=== PATIENT | female | born 1980 | race Caucasian/White ===

== ENCOUNTER 2019-07-20 08:53 | Outpatient (CLI) | payer BC, SELFPAY ==
[2019-07-20 09:26] LABS: Hemoglobin A1C 7.4 % (<5.7)
[2019-07-20 10:53] LABS: Basophils Absolute Auto 0.03 K/mm3 (0.00-0.10); Basophils Percent Auto 0.4 % (0.0-1.0); Eosinophils Absolute Auto 0.32 K/mm3 (0.02-0.50); Eosinophils Percent Auto 3.8 % (1.0-6.0); Hematocrit 38.9 % (35.0-49.0); Hemoglobin 13.1 g/dL (12.0-15.0); Immature Granulocyte Absolute 0.04 K/mm3 (0.00-0.00); Immature Granulocyte Percent A 0.5 % (0.0-0.0); Lymphocytes Absolute Auto 1.69 K/mm3 (1.10-4.50); Lymphocytes Percent Auto 20.3 % (18.0-42.0); Mean Corpuscular HGB Conc 33.7 g/dL (32.0-36.0); Mean Corpuscular Hemoglobin 28.3 pg (27.0-31.0); Mean Platelet Volume 11.3 fl (9.2-11.8); Monocytes Absolute Auto 0.57 K/mm3 (0.10-0.90); Monocytes Percent Auto 6.8 % (2.0-11.0); Neutrophils Absolute Auto 5.7 K/mm3 (1.7-7.2); Neutrophils Percent Auto 68.2 % (50.0-70.0); Platelet Count Result 246 K/mm3 (150-420); Red Blood Count 4.63 M/mm3 (4.20-5.40); Red Cell Distribution Width 14.3 % (11.6-14.4); White Blood Count 8.3 K/mm3 (4.8-10.8)
[2019-07-20 11:29] LABS: Alanine Aminotransferase 42 U/L (14-59); Alkaline Phosphatase 112 U/L (46-116); Anion Gap 16.3 mmol/L (7-16); Aspartate Amino Transferase 30 U/L (15-37); Bilirubin,Total 0.3 mg/dL (0.00-1.00); Blood Urea Nitrogen 15 mg/dL (7-18); Carbon Dioxide 26 mmol/L (21-32); Chloride 99 mmol/L (98-108); Cholesterol 233 mg/dL (0-200); Estimated Glomerular Filt Rate > 60; Free T4 Free Thyroxine 1.07 ng/dL (0.76-1.46); Glucose 189 mg/dL (70-99); HDL Direct 35 mg/dL (40-60); LDL Cholesterol Calculated 125 mg/dL (<130); Osmolality Calculated 289 mOsm/kg (285-295); Potassium 4.3 mmol/L (3.5-5.1); Sodium 137 mmol/L (136-145); Thyroid Stimulating Hormone 0.55 uIU/mL (0.36-3.74); Total Protein 7.6 g/dL (6.4-8.2); Triglycerides 365 mg/dL (0-150); Vitamin B12 486 pg/mL (193-986)
[2019-07-22 18:31] LABS: Vitamin D 25 Hydroxy 23 ng/mL (30-100)
== END 2019-07-20 08:54 | disposition home or self-care (01) ==
PROVIDERS: PCP Nurse Practitioner Family; Visit Provider Nurse Practitioner Family
DX: R53.83 Other fatigue (principal); E11.9 Type 2 diabetes mellitus without complications; E55.9 Vitamin D deficiency, unspecified
CPT/HCPCS: 36415; 80053; 80061; 82306; 82607; 83036; 84439; 84443; 85025

== ENCOUNTER 2019-09-27 09:13 | Outpatient (CLI) | payer BC, SELFPAY ==
[2019-09-28 00:09] LABS: SARS-CoV-2 RNA PCR Negative
== END 2019-09-27 09:14 | disposition home or self-care (01) ==
PROVIDERS: PCP Nurse Practitioner Family; Visit Provider Nurse Practitioner Family
DX: R52 Pain, unspecified (principal)
CPT/HCPCS: 87635; C9803; U0003

== ENCOUNTER 2019-10-19 07:55 | Emergency (ER) | payer BC, SELFPAY ==
--- NOTE | ~2019-10-19 | CT_ITS ---
EXAMINATION: CT brain wo con DATE: 10/19/2019 08:59 INDICATION: Headache. Left-sided numbness. TECHNIQUE: Computed tomography (CT) of the head was performed without intravenous contrast. The mA wa s adjusted according to patient size. Iterative reconstruction technique was employed. Exam dose: 60 5.33 mGy-cm total exam DLP. COMPARISON: None FINDINGS: No intracranial mass lesion or hemorrhage or cerebrovascular accident is detected. There is no midline shift or mass effect. Normal ventricular size. No subdural or epidural hematoma. No fracture or bone destruction of the cranial vault. The mastoid air cells and included paranasal si nuses are normally developed and aerated. IMPRESSION: Negative Reviewed, dictated and finalized at [facility]. Reviewed, dictated and finalized at location A. IMPRESSION: Negative
--- NOTE | ~2019-10-19 | XR_ITS ---
EXAMINATION: XR chest 2V 10/19/2019 08:46 INDICATION: Right-sided chest pain PROCEDURE: 2 view chest COMPARISON: No prior studies for comparison. FINDINGS: The lungs are clear. The cardiomediastinal silhouette is within normal limits. There are no pleural effusions. There is no pneumothorax suspected. IMPRESSION: 1: NO ACUTE CARDIOPULMONARY DISEASE. Reviewed, dictated and finalized at location A.
[2019-10-19 08:00] VITALS: PULSE 80
[2019-10-19 08:02] VITALS: BP 142/86; PULSE 97; RESP 20; TEMP 36.9; O2SAT 96
--- NOTE | 2019-10-19 08:02 | ECG_ITS ---
Measurements Intervals [place] Rate: 88 P: 19 TX: 130 QRS: 63 QRSD: 85 T: 12 QT: 369 QTc: 447 Interpretive Statements SINUS RHYTHM CONSIDER INFERIOR INFARCT, AGE INDETERMINATE BASELINE ARTIFACT- II, III, AVR, AVF ABNORMAL ECG Electronically Signed On 10-19-2019 8:44:03 CDT by Leroy Bowers D.O.
--- NOTE | 2019-10-19 08:13 | ED.CHESTPAIN ---
HPI - Chest Pain General Chief Complaint: Chest Pain Stated Complaint: chest pain l sided numbness since sat Time Seen by Provider: 10/19/19 08:02 Source: patient Mode of arrival: ambulatory Limitations: no limitations History of Present Illness HPI narrative: 39-year-old woman with a history of type 2 diabetes comes to the emergency department today complaining of chest pain for the last 3 days. Patient states that the episodes last approximately 15 minutes and seemed to be improved with rest. She has had some episodes at rest. She associates the pain with nausea. She has also developed a severe headache , left neck pain, and left-sided numbness. she states that while she has recently been camping, she did not find any attached ticks. Patient states that she had a negative stress test 5 years ago after having had chest pains. MD complaint: chest pain Onset (ago): day(s) (3) Timing of current episode: episodic and daily Prior episodes: No Onset: during rest and during exertion Pain location: substernal Pain radiation: none Severity: moderate Quality: sharp Relieving factors: rest Exacerbating factors: palpation Context: recent illness ( recently treated with antibiotics for sinusitis) Associated symptoms: nausea Treatment prior to arrival: aspirin Risk Factors Coronary artery disease risk factors: diabetes and smoking history Related Data On Oral Contraceptives: No Allergies Allergy/AdvReac Type Severity Reaction Status Date / Time codeine Allergy Intermediate unkown Verified 09/28/19 15:07 iodine Allergy Intermediate unknown Verified 09/28/19 15:07 fish oil Allergy Unknown unknown Verified 09/28/19 15:07 seafood Allergy Intermediate unknown Uncoded 09/28/19 15:07 Review of Systems Constitutional: Constitutional: Denies chills, Denies fever(s) and Denies weakness Eyes: Eyes: Denies change in vision and Denies photophobia ENT: Denies dysphagia, Denies nasal congestion and Denies sore throat Cardiovascular: Cardiovascular: Reports chest pain, Denies rapid heart rate, Denies radiating jaw, neck or arm pain and Denies slow heart rate Respiratory: Respiratory: Denies cough, Denies dyspnea and Denies wheezing Gastrointestinal: Gastrointestinal: Reports abdominal pain (left side), Denies diarrhea, Reports nausea and Denies vomiting Genitourinary: Genitourinary: Denies hematuria, Denies nocturia and Denies dysuria Musculoskeletal: Musculoskeletal: Denies back pain, Denies arthralgias and Denies joint swelling Integumentary/Breasts: Skin/Breast: Denies pruritus, Denies erythema and Denies rash Neurologic: Denies vertigo, Denies dizziness and Denies syncope Psychiatric: Psychiatric: Denies anxiety and Denies depression Hematologic/Lymphatic: Hematologic/Lymphatic: Denies easy bleeding and Denies easy bruising Allergic/Immunologic: Allergic/Immunologic: Denies lip swelling, Denies throat swelling and Denies tongue swelling PMFSH Past Medical History Medical History Depression Diabetes mellitus Nicotine dependence Patient overweight Surgical History Surgical History H/O hernia repair History of appendectomy History of colonoscopy in 2010, HERNIA WAS FOUND DURING THIS EXAM History of partial hysterectomy Hx of cholecystectomy Social History Social History Smoking packs per day: 1 Smoking cigarettes per day: 20.0 Years smoked: 25 Smoking pack-years: 25.00 Smoking status: Former smoker Tobacco type: cigarettes Alcohol intake: never Substance use: never Gender identity (if verbalized by the patient): Female Spiritual care concerns: No Exam Const: General: alert Nutritional Appearance: obese Orientation/consciousness: patient oriented x3 Limitations: no limitations Other: Mild acute distress. HENMT: Head: normal t
[2019-10-19] MEDS: ASPIRIN 81 MG CHEWABLE TABLET 324 MG PO (08:20)
[2019-10-19 08:25] LABS: Basophils Absolute Auto 0.05 K/mm3 (0.00-0.10); Basophils Percent Auto 0.6 % (0.0-1.0); Eosinophils Absolute Auto 0.37 K/mm3 (0.02-0.50); Eosinophils Percent Auto 4.7 % (1.0-6.0); Hematocrit 42.5 % (35.0-49.0); Hemoglobin 13.5 g/dL (12.0-15.0); Immature Granulocyte Absolute 0.04 K/mm3 (0.00-0.00); Immature Granulocyte Percent A 0.5 % (0.0-0.0); Lymphocytes Absolute Auto 1.67 K/mm3 (1.10-4.50); Lymphocytes Percent Auto 21.4 % (18.0-42.0); Mean Corpuscular HGB Conc 31.8 g/dL (32.0-36.0); Mean Platelet Volume 10.8 fl (9.2-11.8); Monocytes Percent Auto 6.4 % (2.0-11.0); Neutrophils Absolute Auto 5.2 K/mm3 (1.7-7.2); Neutrophils Percent Auto 66.4 % (50.0-70.0); Platelet Count Result 237 K/mm3 (150-420); White Blood Count 7.8 K/mm3 (4.8-10.8)
[2019-10-19] MEDS: ONDANSETRON INJ 4 MG/2 ML VIAL IV PUSH (08:25)
[2019-10-19 08:33] VITALS: BP 117/80; PULSE 78; RESP 20; O2SAT 99
[2019-10-19 08:36] LABS: Add Urine Microscopic? YES; Appearance Urine Clear (Clear); Bilirubin Urine Negative (Negative); Blood Urine Negative (Negative); Color Urine Yellow (Yellow); Glucose Urine UA 3+ (Negative); Ketones Urine Negative (Negative); Leukocyte Esterase Ur Negative LEU/UL (Negative); Nitrate Urine Negative (Negative); Protein Urine Negative (Negative); Specific Grav Ur 1.015 (1.010-1.020); Urobilinogen Urine 0.2 mg/dL (0.2-1.0)
[2019-10-19 08:42] LABS: Alanine Aminotransferase 45 U/L (14-59); Albumin Level 3.9 g/dL (3.4-5.0); Alkaline Phosphatase 119 U/L (46-116); Anion Gap 10 mmol/L (8-16); Aspartate Amino Transferase 23 U/L (15-37); Bilirubin,Total 0.3 mg/dL (0.00-1.00); Blood Urea Nitrogen 8 mg/dL (7-18); Calcium 9.3 mg/dL (8.5-10.1); Carbon Dioxide 27 mmol/L (21-32); Chloride 101 mmol/L (98-108); Estimated CRCL calculation 70 ml/min; Estimated Glomerular Filt Rate > 60; Glucose 163 mg/dL (70-99); Lipase 224 U/L (73-393); Osmolality Calculated 288 mOsm/kg (285-295); Sodium 138 mmol/L (136-145); Total Protein 8.5 g/dL (6.4-8.2)
[2019-10-19 08:43] LABS: D Dimer 0.46 mg/L (0.19-0.50); Partial Thromboplastin Time 25.8 SEC (22.3-31.6); Prothrombin Time 10.1 Seconds (9.64-11.0)
[2019-10-19 08:44] LABS: Troponin I < 0.02 ng/mL (0.00-0.056)
[2019-10-19 08:44] LABS: RBC Urine 0-2 /hpf (0-2); WBC Urine 0-3 /hpf (0-3)
[2019-10-19 08:45] LABS: Bacteria Urine Trace /hpf; Squamous Epithelial Cell Urine Few /hpf (Few)
[2019-10-19 09:26] VITALS: BP 131/73; PULSE 79; RESP 18; TEMP 36.6; O2SAT 98
[2019-10-20 12:51] LABS: Hemoglobin A1C 6.5 % (<5.7)
[2019-10-23 11:36] LABS: Vitamin D 25 Hydroxy 45 ng/mL (30-100)
== END 2019-10-19 09:41 | disposition home or self-care (01) ==
PROVIDERS: Emergency Provider Emergency Medicine; PCP Nurse Practitioner Family
DX: R07.89 Other chest pain (principal); M54.2 Cervicalgia; E11.9 Type 2 diabetes mellitus without complications; R51 Headache; F32.9 Major depressive disorder, single episode, unspecified; F17.210 Nicotine dependence, cigarettes, uncomplicated; E55.9 Vitamin D deficiency, unspecified
CPT/HCPCS: 36415; 70450; 71046; 80053; 81001; 82306; 83036; 83690; 84484; 85025; 85380; 85610; 85730; 93005; 96374; 99284; A9270; J2405

== ENCOUNTER 2019-10-20 11:57 | Outpatient (CLI) | payer BC, SELFPAY ==
--- NOTE | ~2019-10-20 | XR_ITS ---
XR shoulder LT min 2V DATE: 10/20/2019 12:33 INDICATION: Neck pain radiating down the left shoulder for 4 days TECHNIQUE: 4 views of left shoulder COMPARISON: None FINDINGS: No fracture, dislocation, periosteal reaction or bone destruction or abnormal soft tissue c alcification of the left shoulder. Normal alignment at the acromioclavicular and glenohumeral joints. IMPRESSION: Negative Reviewed, dictated and finalized at location A. IMPRESSION: Negative
--- NOTE | ~2019-10-20 | XR_ITS ---
XR_CERV2-3V_CR DATE: 10/20/2019 12:33 INDICATION: Neck pain radiating down left shoulder for 4 days TECHNIQUE: AP, lateral, open-mouth views COMPARISON: 12/19/2015 cervical spine FINDINGS: There is straightening and mild reversal of cervical curvature. C1 and C2 are normally aligned and the odontoid process is intact. No fracture or dislocation or lock ed facet or prevertebral soft tissue swelling. There is moderate loss of interspace height and mild to moderate posterior spurring at C5-6 consisten t with moderate degenerative disc disease. There is uncovertebral joint spurring at C5-6 as well. The remaining cervical interspaces are well preserved. IMPRESSION: Straightening/mild reversal Moderately prominent degenerative disc disease and uncovertebral joint spurring at C5-6 Reviewed, dictated and finalized at [facility]. Reviewed, dictated and finalized at location A.
== END 2019-10-20 11:58 | disposition home or self-care (01) ==
LOC: CHSIMG 12:00
PROVIDERS: PCP Nurse Practitioner Family; Visit Provider Nurse Practitioner Family
DX: M54.2 Cervicalgia (principal)
CPT/HCPCS: 72040; 73030

== ENCOUNTER 2019-10-26 15:50 | Outpatient (RCR) | payer BC, SELFPAY ==
--- NOTE | 2019-10-26 16:50 | PTOPEVAL ---
Thank you for referring Marisol Lane to [facility].? The patient is scheduled to be seen for therapy? ____x/week for ___ weeks. Please review, sign, date and return this plan of care CRISTIANA. I agree with and certify that the following plan of care is medically necessary. Referring Physician Date Admitting Provider: Attending Provider: Chrissie Berry NP Referring Provider: *PT Outpatient Evaluation Start: 10/26/19 15:57 Freq: Status: Active Protocol: Document 10/26/19 15:57 [facility] (Rec: 10/26/19 16:42 [facility] [id number]) Therapy Assessment Status Assessment Status Assessment Status Evaluation Outpatient Past Medical History Gastrointestinal History Hx Appendectomy Yes Hx Cholecystectomy Yes Hx Hernia Yes Endocrine History Hx Diabetes Yes Reproductive History Hx Hysterectomy Yes Psychosocial History Hx Depression Yes Evaluation Information Problem Diagnosis cervical osteophyte Onset 10/21/19 Subjective Information patient reports she initially Query Text:As Reported By Patient/ thought she was having a heart Family attack due to tingling in the L side. she reports she then had numbness in the jaw and chest pain. she has been cleared from the heart like symptoms, but that she has bone spurs in the c5-6 area. she reports she still currently has numbness on the L side from the base of her neck to the L toe. she reports L side jaw numbness at times. she reports laying down reproduces minimal symptoms, but increased activities of the UE's increased numbness symptoms. Prior Level of Function Comments Additional Prior Level of Function patient reports she has been Comments having these symptoms for about 2 weeks. she reports no injury. 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 she reports she is working from home currently. she reports she has been getting regular massges for years, then stopped, then began having pain about 3 days aft
--- NOTE | 2019-11-03 16:14 | PCPTNOTE ---
patient cancelled appt today due to not feeling well. DONALDO
--- NOTE | 2020-01-18 13:20 | PCPTNOTE ---
01/18/20 - patient has not been to therapy in over a month. as of this date, she has been DC'd from skilled PT services, and all progress towards goals will be taken from her most recent evaluation/note.
== END 2019-12-09 14:31 | disposition home or self-care (01) ==
LOC: CHSPT 15:50
PROVIDERS: PCP Nurse Practitioner Family; Visit Provider Nurse Practitioner Family
DX: M25.78 Osteophyte, vertebrae (principal)
CPT/HCPCS: 97014; 97110; 97140; 97162; G0283

== ENCOUNTER 2019-11-06 07:40 | Outpatient (CLI) | payer BC, SELFPAY ==
--- NOTE | ~2019-11-06 | MR_ITS ---
EXAMINATION: MR cervical spine wo con EXAM DATE: 11/06/2019 08:49 INDICATION: Neck pain going down left side with numbness, tingling, symptoms 3 months. TECHNIQUE: Multi-sequential, multiplanar MR images of the cervical spine were obtained without contra st. Axial T2, axial T2 MERGE sequence. Sagittal T1, T2, T2 fat saturation images also obtained. Th ere is no prior study for comparison. FINDINGS: There is mild disc disease at C5-6 and 6-7. The vertebral bodies are aligned in the AP dim ension. The spinal cord signal intensity and intrinsic morphology is normal. Cervicomedullary junctio n is normal in appearance. There are no suspicious marrow signal abnormalities. Paraspinal soft tissu e is unremarkable. Level by level evaluation: C2-C3: Disc does not extend beyond the endplate margin. Uncovertebral joint arthropathy: None. Facet joint arthropathy: Mild bilateral. Neural foraminal stenosis: No stenosis. Central canal stenosis: No stenosis. C3-C4: Disc does not extend beyond the endplate margin. Uncovertebral joint arthropathy: None. Facet joint arthropathy: Mild bilateral. Neural foraminal stenosis: No stenosis. Central canal stenosis: No stenosis. C4-C5: Disc does not extend beyond the endplate margin. Uncovertebral joint arthropathy: Mild bilateral. Facet joint arthropathy: Mild bilateral. Neural foraminal stenosis: No stenosis. Central canal stenosis: No stenosis. C5-C6: There is a mild diffuse disc bulge, causing mild flattening of cord but no signal abnormality, no edema. Uncovertebral joint arthropathy: Mild to moderate bilateral. Facet joint arthropathy: Mild. Neural foraminal stenosis: Mild to moderate right, mild left. Central canal stenosis: Mild. C6-C7: There is a minimal diffuse disc bulge. Uncovertebral joint arthropathy: Mild to moderate bilateral. Facet joint arthropathy: Mild bilateral. Neural foraminal stenosis: Mild bilateral. Central canal stenosis: No stenosis. C7-T1: Disc does not extend beyond the endplate margin. Uncovertebral joint arthropathy: None. Facet joint arthropathy: Mild left. Neural foraminal stenosis: No stenosis. Central canal stenosis: No stenosis. IMPRESSION: 1. Mild to moderate cervical spondylosis. Reviewed, dictated and finalized at location A.
== END 2019-11-06 07:41 | disposition home or self-care (01) ==
LOC: CHSIMG 07:41
PROVIDERS: PCP Nurse Practitioner Family
DX: M54.12 Radiculopathy, cervical region (principal)
CPT/HCPCS: 72141

== ENCOUNTER 2019-11-24 11:08 | Outpatient (CLI) | payer BC, SELFPAY ==
[2019-11-25 13:52] LABS: SARS-CoV-2 RNA PCR Negative
== END 2019-11-24 11:09 | disposition home or self-care (01) ==
PROVIDERS: PCP Family Medicine; Visit Provider Family Medicine
DX: Z20.828 Contact with and (suspected) exposure to other viral communicable diseases (principal)
CPT/HCPCS: 87635; C9803; U0003

== ENCOUNTER 2019-12-28 16:04 | Outpatient (CLI) | payer BC, SELFPAY ==
[2019-12-29 14:04] LABS: SARS-CoV-2 RNA PCR Negative
== END 2019-12-28 16:05 | disposition home or self-care (01) ==
LOC: CHSLAB 16:07
PROVIDERS: PCP Nurse Practitioner Family; Visit Provider Nurse Practitioner Family
DX: Z20.828 Contact with and (suspected) exposure to other viral communicable diseases (principal)
CPT/HCPCS: 87635; C9803; U0003

== ENCOUNTER 2020-01-11 12:57 | Outpatient (CLI) | payer BC, SELFPAY ==
[2020-01-11 14:38] LABS: SARS-CoV-2 Ag Negative (Negative)
== END 2020-01-11 12:58 | disposition home or self-care (01) ==
LOC: CHSLAB 13:00
PROVIDERS: PCP Nurse Practitioner Family; Visit Provider Nurse Practitioner Family
DX: Z20.828 Contact with and (suspected) exposure to other viral communicable diseases (principal)
CPT/HCPCS: 87426

== ENCOUNTER 2020-02-24 09:52 | Outpatient (CLI) | payer BC, SELFPAY ==
[2020-02-24 10:25] LABS: Hemoglobin A1C 7.6 % (<5.7)
[2020-02-24 12:13] LABS: Alanine Aminotransferase 34 U/L (14-59); Albumin Level 4.3 g/dL (3.4-5.0); Alkaline Phosphatase 153 U/L (46-116); Anion Gap 13 mmol/L (8-16); Aspartate Amino Transferase 26 U/L (15-37); Bilirubin,Total 0.4 mg/dL (0.00-1.00); Blood Urea Nitrogen 9 mg/dL (7-18); Calcium 9.4 mg/dL (8.5-10.1); Carbon Dioxide 25 mmol/L (21-32); Chloride 96 mmol/L (98-108); Estimated Glomerular Filt Rate > 60; Glucose 155 mg/dL (70-99); Osmolality Calculated 279 mOsm/kg (285-295); Potassium 4.2 mmol/L (3.5-5.1); Sodium 134 mmol/L (136-145); Total Protein 8.6 g/dL (6.4-8.2)
[2020-03-02 02:45] LABS: Vitamin D 25 Hydroxy 34 ng/mL (30-100)
== END 2020-02-24 09:53 | disposition home or self-care (01) ==
LOC: CHSLAB 09:54
PROVIDERS: PCP Nurse Practitioner Family; Visit Provider Nurse Practitioner Family
DX: E11.9 Type 2 diabetes mellitus without complications (principal); E55.9 Vitamin D deficiency, unspecified
CPT/HCPCS: 36415; 80053; 82306; 83036

== ENCOUNTER 2020-03-31 11:22 | Outpatient (CLI) | payer BC, SELFPAY ==
[2020-03-31 11:41] LABS: Hemoglobin A1C 6.7 % (<5.7)
== END 2020-03-31 11:23 | disposition home or self-care (01) ==
LOC: CHSLAB 11:22
PROVIDERS: PCP Nurse Practitioner Family; Visit Provider Nurse Practitioner Family
DX: E11.9 Type 2 diabetes mellitus without complications (principal)
CPT/HCPCS: 36415; 83036

== ENCOUNTER 2020-09-05 13:45 | Outpatient (CLI) | payer BC, SELFPAY ==
--- NOTE | ~2020-09-05 | US_ITS ---
US thyroid INDICATION: Thyroid goiter TECHNIQUE: Real-time sonographic images of the thyroid gland were obtained. COMPARISON: No prior studies for comparison. FINDINGS: The right thyroid lobe measures 5.2 x 1.5 x 1.5 cm. The left thyroid lobe measures 4.1 x 1 .6 x 0.9 cm. There is normal echotexture and echogenicity throughout the thyroid gland. There are sma ll hypoechoic masses of the right lobe, largest measuring 6 x 5 x 3 mm with having a spongiform appea geoffrey, hypoechoic, wider than tall, no microcalcifications and smooth margins, TR 2, not suspicious. Normal vascular flow is present. IMPRESSION: 1. Small right thyroid nodules, likely benign. Reviewed, dictated and finalized at location A.
== END 2020-09-05 13:46 | disposition home or self-care (01) ==
LOC: CHSIMG 13:47
PROVIDERS: PCP Nurse Practitioner Family; Visit Provider Internal Medicine Endocrinology, Diabetes & Metabolism
DX: E04.9 Nontoxic goiter, unspecified (principal)
CPT/HCPCS: 76536

== ENCOUNTER 2020-09-06 07:21 | Outpatient (CLI) | payer BC, SELFPAY ==
[2020-09-06 07:55] LABS: Creatinine Urine 48.01 mg/dL (40-278); Hemoglobin A1C 7.6 % (<5.7); Microalbumin Urine Random < 13.0 mg/L
[2020-09-06 09:31] LABS: Alanine Aminotransferase 30 U/L (14-59); Albumin Level 3.9 g/dL (3.4-5.0); Alkaline Phosphatase 131 U/L (46-116); Anion Gap 14 mmol/L (8-16); Aspartate Amino Transferase 19 U/L (15-37); Bilirubin,Total 0.5 mg/dL (0.00-1.00); Blood Urea Nitrogen 10 mg/dL (7-18); Calcium 8.9 mg/dL (8.5-10.1); Carbon Dioxide 26 mmol/L (21-32); Chloride 99 mmol/L (98-108); Estimated Glomerular Filt Rate > 60; Free T3 2.46 pg/mL (2.18-3.98); Free T4 Free Thyroxine 0.91 ng/dL (0.76-1.46); Glucose 145 mg/dL (70-99); Osmolality Calculated 290 mOsm/kg (285-295); Potassium 4.3 mmol/L (3.5-5.1); Sodium 139 mmol/L (136-145); Thyroid Stimulating Hormone 0.71 uIU/mL (0.36-3.74); Total Protein 7.5 g/dL (6.4-8.2); Vitamin B12 1730 pg/mL (193-986)
[2020-09-06 09:35] LABS: Folic Acid > 20.0 ng/mL (8.6->20)
[2020-09-09 05:12] LABS: DHEA-Sulfate 219 mcg/dL (19-231); Thyroid Peroxidase Antibodies <1 IU/mL (<9)
[2020-09-09 05:36] LABS: FSH 6.5 mIU/mL (***); LH 3.4 mIU/mL (***); Progesterone 0.5 ng/mL (***)
[2020-09-12 22:16] LABS: Estradiol, Ultrasensitive 21 pg/mL
[2020-09-13 14:39] LABS: Testosterone Free 2.3 pg/mL (0.1-6.4); Testosterone Total 14 ng/dL (2-45)
== END 2020-09-06 07:22 | disposition home or self-care (01) ==
LOC: CHSLAB 07:23
PROVIDERS: PCP Nurse Practitioner Family; Visit Provider Internal Medicine Endocrinology, Diabetes & Metabolism
DX: E11.65 Type 2 diabetes mellitus with hyperglycemia (principal); N95.9 Unspecified menopausal and perimenopausal disorder; R53.83 Other fatigue
CPT/HCPCS: 36415; 80053; 82043; 82607; 82627; 82670; 82746; 83001; 83002; 83036; 84144; 84402; 84403; 84439; 84443; 84481; 86376

== ENCOUNTER 2021-02-27 07:02 | Outpatient (CLI) | payer BC, SELFPAY ==
[2021-02-27 07:33] LABS: Creatinine Urine 71.83 mg/dL (40-278); Microalbumin Urine Random < 13.0 mg/L
[2021-02-27 07:48] LABS: Hemoglobin A1C 6.7 % (<5.7)
[2021-02-27 09:33] LABS: Alanine Aminotransferase 22 U/L (14-59); Alkaline Phosphatase 123 U/L (46-116); Anion Gap 12 mmol/L (8-16); Aspartate Amino Transferase 12 U/L (15-37); Bilirubin,Total 0.3 mg/dL (0.00-1.00); Blood Urea Nitrogen 16 mg/dL (7-18); Calcium 9.2 mg/dL (8.5-10.1); Carbon Dioxide 28 mmol/L (21-32); Chloride 98 mmol/L (98-108); Cholesterol 316 mg/dL (0-200); Estimated Glomerular Filt Rate > 60; Folic Acid 12.8 ng/mL (8.6->20); Free T3 2.45 pg/mL (2.18-3.98); Free T4 Free Thyroxine 0.91 ng/dL (0.76-1.46); Glucose 138 mg/dL (70-99); HDL Direct 35 mg/dL (40-60); Osmolality Calculated 289 mOsm/kg (285-295); Potassium 4.2 mmol/L (3.5-5.1); Sodium 138 mmol/L (136-145); Thyroid Stimulating Hormone 0.66 uIU/mL (0.36-3.74); Total Protein 8.1 g/dL (6.4-8.2)
[2021-02-27 09:41] LABS: LDL Cholesterol Calculated 163 mg/dL (<130); Triglycerides 589 mg/dL (0-150); Vitamin B12 > 2000 pg/mL (193-986)
[2021-02-27 09:43] LABS: LDL Cholesterol Direct 174 mg/dL (0-130)
[2021-03-02 05:17] LABS: Thyroid Peroxidase Antibodies <1 IU/mL (<9)
== END 2021-02-27 07:03 | disposition home or self-care (01) ==
LOC: CHSLAB 07:05
PROVIDERS: PCP Nurse Practitioner Family; Visit Provider Internal Medicine Endocrinology, Diabetes & Metabolism
DX: E11.9 Type 2 diabetes mellitus without complications (principal); E06.3 Autoimmune thyroiditis; Z13.220 Encounter for screening for lipoid disorders
CPT/HCPCS: 36415; 80053; 80061; 82043; 82607; 82746; 83036; 83721; 84439; 84443; 84481; 86376

== ENCOUNTER 2021-03-06 09:44 | Outpatient (CLI) | payer BC, SELFPAY ==
--- NOTE | ~2021-03-06 | XR_ITS ---
XR hand LT 2V DATE: 03/06/2021 09:56 INDICATION: Fourth and fifth distal metacarpal lump/swelling, tingling. No injury. TECHNIQUE: AP and lateral views COMPARISON: None FINDINGS: No fracture, dislocation, periosteal reaction or bone destruction, joint space narrowing, e rosive change or chondrocalcinosis. IMPRESSION: Negative Reviewed, dictated and finalized at location A. F DEVELOPMENT EDUCATOR IMPRESSION: Negative
== END 2021-03-06 09:45 | disposition home or self-care (01) ==
LOC: CHSIMG 09:46
PROVIDERS: PCP Nurse Practitioner Family; Visit Provider Nurse Practitioner Family
DX: R22.32 Localized swelling, mass and lump, left upper limb (principal)
CPT/HCPCS: 73120

== ENCOUNTER 2021-03-20 10:15 | Outpatient (CLI) | payer BC, SELFPAY ==
--- NOTE | ~2021-03-20 | US_ITS ---
EXAMINATION: US soft tissue UE LT DATE: 03/20/2021 10:30 INDICATION: Left hand ganglion cyst TECHNIQUE: Multiple grayscale and Doppler ultrasound images of the region of the palpable abnormality at the palmar aspect of the left hand to the base of the fifth digit were obtained. COMPARISON: Left hand radiographs dated 03/06/2021 FINDINGS/IMPRESSION: 3 x 1 x 3 mm anechoic likely ganglion cyst along the superficial margin of the flexor tendon overlyin g the palmar aspect of the fifth metacarpophalangeal joint. No other abnormal masses or fluid collect ions identified. Reviewed, dictated and finalized at location A. OPSYCHOLOGIST
== END 2021-03-20 10:16 | disposition home or self-care (01) ==
LOC: CHSIMG 10:16
PROVIDERS: PCP Nurse Practitioner Family; Visit Provider Nurse Practitioner Family
DX: M67.442 Ganglion, left hand (principal)
CPT/HCPCS: 76882

== ENCOUNTER 2021-08-21 10:38 | Outpatient (CLI) | payer BC, SELFPAY ==
[2021-08-21 11:35] LABS: Hemoglobin A1C 7.1 % (<5.7)
[2021-08-21 11:37] LABS: MALB Creatinine Ratio 35.6 mg/g (0-30); Microalbumin Urine Random < 13.0 mg/L
[2021-08-21 11:47] LABS: Alanine Aminotransferase 30 U/L (14-59); Alkaline Phosphatase 91 U/L (46-116); Anion Gap 10 mmol/L (8-16); Aspartate Amino Transferase 14 U/L (15-37); Bilirubin,Total 0.4 mg/dL (0.00-1.00); Blood Urea Nitrogen 10 mg/dL (7-18); Calcium 9.2 mg/dL (8.5-10.1); Carbon Dioxide 26 mmol/L (21-32); Chloride 100 mmol/L (98-108); Cholesterol 121 mg/dL (0-200); Estimated Glomerular Filt Rate > 60; Free T3 1.85 pg/mL (2.18-3.98); Free T4 Free Thyroxine 0.96 ng/dL (0.76-1.46); Glucose 118 mg/dL (70-99); HDL Direct 35 mg/dL (40-60); LDL Cholesterol Calculated 41 mg/dL (<130); Osmolality Calculated 282 mOsm/kg (285-295); Potassium 3.6 mmol/L (3.5-5.1); Sodium 136 mmol/L (136-145); Thyroid Stimulating Hormone 0.47 uIU/mL (0.36-3.74); Total Protein 7.7 g/dL (6.4-8.2); Triglycerides 226 mg/dL (0-150)
== END 2021-08-21 10:39 | disposition home or self-care (01) ==
LOC: CHSLAB 10:43
PROVIDERS: PCP Internal Medicine Endocrinology, Diabetes & Metabolism; Visit Provider Internal Medicine Endocrinology, Diabetes & Metabolism
DX: E03.9 Hypothyroidism, unspecified (principal); E78.2 Mixed hyperlipidemia; E11.9 Type 2 diabetes mellitus without complications
CPT/HCPCS: 36415; 80053; 80061; 82043; 83036; 84439; 84443; 84481

== ENCOUNTER 2021-11-01 09:39 | Emergency (ER) | payer BC, SELFPAY ==
[2021-11-01 09:43] VITALS: BP 114/70; PULSE 88; RESP 16; TEMP 36.3; O2SAT 100
--- NOTE | 2021-11-01 09:44 | ED.FEMALEGU ---
HPI - Female Genitourinary General Stated complaint: Poss UTI Time Seen by Provider: 11/01/21 09:44 Source: patient and RN notes reviewed History of Present Illness HPI Narrative: Patient is a 41-year-old female who presents the urgent care with complaints of urinary frequency and intermittent nausea. Patient denies of any fever, abdominal pain or vomiting. States that she is diabetic and on a medication that increases her urine output however this seems to be worse since Friday. Patient states she has a history of urinary tract infections but has not had one in some time. Denies of any hematuria. States that she has had some mild low back pain. Patient is not done anything [id number] for her symptoms. Patient also has not checked her blood sugar in some time and has not been wearing her monitor. No other acute complaints. No acute distress noted. Patient aware of the plan of care. Some parts of this dictation were generated by voice recognition software and may contain typographical and/or grammatical inaccuracies. Related Data Home Medications Medication Instructions Recorded Confirmed dapagliflozin 10 mg tablet 10 mg PO QAM 03/06/21 metformin 500 mg tablet,extended 500 mg PO BID 03/06/21 03/06/21 release 24 hr rosuvastatin 40 mg tablet 40 mg PO DAILY 04/24/21 semaglutide 0.25 mg or 0.5 mg (2 0.5 mg subcut WEEKLY 04/24/21 mg/1.5 mL) subcutaneous pen injector Allergies Allergy/AdvReac Type Severity Reaction Status Date / Time codeine Allergy Intermediate unkown Verified 04/24/21 12:48 iodine Allergy Intermediate unknown Verified 04/24/21 12:48 fish oil Allergy Unknown unknown Verified 04/24/21 12:48 seafood Allergy Intermediate unknown Uncoded 04/24/21 12:48 Review of Systems Review of Systems: CONSTITUTIONAL: Denies fever, chills, or sweats. EYES: Denies visual changes, redness, or discharge. ENT: Denies rhinorrhea, congestion, sore throat, or otalgia. CARDIOVASCULAR: Denies chest pain, palpitations, or edema. RESPIRATORY: Denies cough or dyspnea. GASTROINTESTINAL: Reports of nausea GENITOURINARY: Reports of urinary frequency and mild dysuria SKIN: Denies rash or itching. MUSCULOSKELETAL: Reports of low back pain NEUROLOGIC: Denies headache, numbness, or weakness. All other systems reviewed are negative, except as documented in HPI. PMFSH Past Medical History Medical History Acute bronchitis Acute bronchitis Depression Diabetes mellitus Exposure to COVID-19 virus Nicotine dependence Quit for awhile, started smoking again 10/2019 Patient overweight Surgical History Surgical History H/O hernia repair History of appendectomy History of colonoscopy in 2010, HERNIA WAS FOUND DURING THIS EXAM History of partial hysterectomy Hx of cholecystectomy Family History Family History Mother Hypertension Grandparent Hypertension Other Diabetes mellitus Social History Social History Smoking packs per day: 1 Smoking cigarettes per day: 20.0 Years smoked: 25 Smoking pack-years: 25.00 Smoking status: Current every day smoker Tobacco type: cigarettes Alcohol intake: never Substance use: never Gender identity (if verbalized by the patient): Female Spiritual care concerns: No Comments At the time of my signature, I reviewed and agree with the nursing past medical, surgical, social, and family history. There is no relevant family history pertinent to the patient complaint. Exam Narrative: GENERAL: This is a well-nourished, well-developed patient, in no apparent distress. HEAD: normocephalic, atraumatic. EYES: PERRL. Sclera clear/white. Vision is grossly intact. EARS: External ears normal NOSE: External nose normal with no obvious nasal discharge
== END 2021-11-01 10:05 | disposition home or self-care (01) ==
PROVIDERS: Emergency Provider Nurse Practitioner Family
DX: R35.0 Frequency of micturition (principal); E11.9 Type 2 diabetes mellitus without complications; F17.210 Nicotine dependence, cigarettes, uncomplicated; Z87.440 Personal history of urinary (tract) infections
CPT/HCPCS: 81003; 87086; 87088; 99213; G0463

== ENCOUNTER 2021-11-23 06:53 | Outpatient (CLI) | payer BC, SELFPAY ==
[2021-11-23 07:36] LABS: Hemoglobin A1C 6.6 % (<5.7)
[2021-11-23 08:32] LABS: Alanine Aminotransferase 37 U/L (14-59); Albumin Level 4.3 g/dL (3.4-5.0); Alkaline Phosphatase 77 U/L (46-116); Anion Gap 8 mmol/L (8-16); Aspartate Amino Transferase 20 U/L (15-37); Bilirubin,Total 0.4 mg/dL (0.00-1.00); Blood Urea Nitrogen 13 mg/dL (7-18); Calcium 8.7 mg/dL (8.5-10.1); Carbon Dioxide 28 mmol/L (21-32); Chloride 102 mmol/L (98-108); Cholesterol 92 mg/dL (0-200); Estimated Glomerular Filt Rate > 60; Free T3 2.15 pg/mL (2.18-3.98); Free T4 Free Thyroxine 1.09 ng/dL (0.76-1.46); Glucose 114 mg/dL (70-99); HDL Direct 33 mg/dL (40-60); LDL Cholesterol Calculated 34 mg/dL (<130); Osmolality Calculated 287 mOsm/kg (285-295); Sodium 138 mmol/L (136-145); Thyroid Stimulating Hormone 0.64 uIU/mL (0.36-3.74); Total Protein 7.5 g/dL (6.4-8.2); Triglycerides 124 mg/dL (0-150)
== END 2021-11-23 06:54 | disposition home or self-care (01) ==
LOC: CHSLAB 06:55
PROVIDERS: PCP Nurse Practitioner Family; Visit Provider Internal Medicine Endocrinology, Diabetes & Metabolism
DX: E03.9 Hypothyroidism, unspecified (principal); E11.9 Type 2 diabetes mellitus without complications; E78.2 Mixed hyperlipidemia
CPT/HCPCS: 36415; 80053; 80061; 82043; 83036; 84439; 84443; 84481

== ENCOUNTER 2022-05-20 07:00 | Outpatient (CLI) | payer BC, SELFPAY ==
[2022-05-20 07:58] LABS: MALB Creatinine Ratio 14.2 mg/g (0-30); Microalbumin Urine Random 16.5 mg/L
[2022-05-20 07:59] LABS: Hemoglobin A1C 6.2 % (<5.7)
[2022-05-20 08:14] LABS: Alanine Aminotransferase 106 U/L (14-59); Albumin Level 4.3 g/dL (3.4-5.0); Alkaline Phosphatase 82 U/L (46-116); Anion Gap 9 mmol/L (8-16); Aspartate Amino Transferase 64 U/L (15-37); Bilirubin,Total 0.5 mg/dL (0.00-1.00); Blood Urea Nitrogen 11 mg/dL (7-18); Carbon Dioxide 30 mmol/L (21-32); Chloride 102 mmol/L (98-108); Cholesterol 95 mg/dL (0-200); Estimated Glomerular Filt Rate > 60; Free T3 2.28 pg/mL (2.18-3.98); Glucose 123 mg/dL (70-99); HDL Direct 39 mg/dL (40-60); LDL Cholesterol Calculated 37 mg/dL (<130); Osmolality Calculated 292 mOsm/kg (285-295); Potassium 4.1 mmol/L (3.5-5.1); Sodium 141 mmol/L (136-145); Thyroid Stimulating Hormone 0.55 uIU/mL (0.36-3.74); Total Protein 7.5 g/dL (6.4-8.2); Triglycerides 93 mg/dL (0-150)
== END 2022-05-20 07:01 | disposition home or self-care (01) ==
PROVIDERS: PCP Nurse Practitioner Family; Visit Provider Internal Medicine Endocrinology, Diabetes & Metabolism
DX: E11.9 Type 2 diabetes mellitus without complications (principal); E03.9 Hypothyroidism, unspecified; E78.2 Mixed hyperlipidemia
CPT/HCPCS: 36415; 80053; 80061; 82043; 83036; 84439; 84443; 84481

== ENCOUNTER 2022-07-19 07:02 | Outpatient (CLI) | payer BC, SELFPAY ==
[2022-07-19 08:57] LABS: Alanine Aminotransferase 78 U/L (14-59); Albumin Level 4.1 g/dL (3.4-5.0); Alkaline Phosphatase 77 U/L (46-116); Aspartate Amino Transferase 31 U/L (15-37); Bilirubin Direct 0.1 mg/dL (0-0.2); Bilirubin,Total 0.3 mg/dL (0.00-1.00); Ferritin 90 ng/mL (8-252); GGT 40 U/L (5-55); Iron 51 ug/dL (50-170); Percent Iron Saturation 14 % (12-57); Total Protein 7.2 g/dL (6.4-8.2)
[2022-07-24 12:15] LABS: Hepatitis A Antibody IgM Nonreactive; Hepatitis B Core Antibody Nonreactive (Nonreactive); Hepatitis B Surface Antigen Nonreactive (Nonreactive); Hepatitis C Signal to Cutoff 0.02 ratio (<1.00); Hepatitis C Virus Antibody Nonreactive (Nonreactive)
[2022-07-25 21:55] LABS: LKM 1 Antibody <=20.0 U (<=20.0)
[2022-07-25 22:16] LABS: Mitochondrial (M2) Ab (IgG) <=20.0 U (<=20.0)
== END 2022-07-19 07:03 | disposition home or self-care (01) ==
LOC: CHSLAB 07:05
PROVIDERS: PCP Nurse Practitioner Family; Visit Provider Internal Medicine Endocrinology, Diabetes & Metabolism
DX: R74.01 Elevation of levels of liver transaminase levels (principal)
CPT/HCPCS: 36415; 80074; 80076; 82728; 82977; 83516; 83520; 83540; 83550; 86038; 86376

== ENCOUNTER 2022-07-25 09:57 | Emergency (ER) | payer BC, SELFPAY ==
[2022-07-25 10:08] VITALS: BP 117/72; PULSE 71; RESP 16; TEMP 36.9; O2SAT 100
--- NOTE | 2022-07-25 10:12 | ED.SKABFB ---
HPI - Skin/Abscess/Foreign Bdy General Chief complaint: Skin/Abscess/Foreign Body Stated complaint: Insect Bite Time Seen by Provider: 07/25/22 10:12 Source: patient, RN notes reviewed and old records reviewed Mode of arrival: ambulatory Limitations: no limitations History of Present Illness HPI narrative: 42-year-old female presents to the [facility] with complaints or concerns of an insect bite to the tyra area. Patient has a history of diabetes States that she noticed it Friday 0.5 cm scabbed over area to the left Ty[place] area anterior. No erythema, tenderness to palpation. Patient reports swollen lymph nodes. No fluctuance Onset (ago): day(s) (3) Treatments prior to arrival: none Related Data Home Medications Medication Instructions Recorded Confirmed dapagliflozin 10 mg tablet 10 mg PO QAM 03/06/21 07/25/22 metformin 500 mg tablet,extended 500 mg PO BID 03/06/21 07/25/22 release 24 hr rosuvastatin 40 mg tablet 40 mg PO DAILY 04/24/21 07/25/22 semaglutide 0.25 mg or 0.5 mg (2 0.5 mg subcut WEEKLY 04/24/21 07/25/22 mg/1.5 mL) subcutaneous pen injector icosapent ethyl 1 gram capsule 2 g PO BID 05/13/22 07/25/22 levothyroxine 25 mcg tablet 25 mcg PO DAILY 05/13/22 07/25/22 (Unithroid) Allergies Allergy/AdvReac Type Severity Reaction Status Date / Time codeine Allergy Intermediate unkown Verified 07/25/22 10:16 iodine Allergy Intermediate unknown Verified 07/25/22 10:16 fish oil Allergy Unknown unknown Verified 07/25/22 10:16 seafood Allergy Intermediate unknown Uncoded 07/25/22 10:16 Review of Systems Review of Systems: All systems reviewed & are unremarkable except as noted in HPI and below Constitutional: Constitutional: Reports no additional constitutional complaints Eyes: Eyes: Reports no additional eye complaints ENT: Reports system reviewed and no additional complaints, except as documented Cardiovascular: Cardiovascular: Reports no additional cardiovascular complaints, Denies chest pain and Denies dyspnea Respiratory: Respiratory: Reports no additional respiratory complaints, Denies chest congestion, Denies cough and Denies dyspnea Gastrointestinal: Gastrointestinal: Reports no additional gastrointestinal complaints, Denies abdominal pain, Denies nausea and Denies vomiting Musculoskeletal: Musculoskeletal: Reports no additional musculoskeletal complaints Integumentary/Breasts: Skin/Breast: Reports as per HPI Neurologic: Reports system reviewed and no additional complaints, except as documented Psychiatric: Psychiatric: Reports no additional psychiatric complaints Allergic/Immunologic: Allergic/Immunologic: Reports no additional allergic/immunologic complaints PMFSH Past Medical History Medical History Diabetes mellitus Nicotine dependence Quit for awhile, started smoking again 10/2019 Patient overweight Surgical History Surgical History H/O hernia repair History of appendectomy History of colonoscopy in 2010, HERNIA WAS FOUND DURING THIS EXAM History of partial hysterectomy Hx of cholecystectomy Family History Family History Mother Hypertension Grandparent Hypertension Other Diabetes mellitus Social History Social History Smoking packs per day: 1 Smoking cigarettes per day: 20.0 Years smoked: 25 Smoking pack-years: 25.00 Smoking status: Current every day smoker Tobacco type: cigarettes Alcohol intake: never Substance use: never Living arrangements: with family Gender identity (if verbalized by the patient): Female Spiritual care concerns: No Comments At the time of my signature, I reviewed and agree with the nursing past medical, surgical, social, and family history. There is no relevant family history pertinent to the pa
== END 2022-07-25 10:25 | disposition home or self-care (01) ==
PROVIDERS: Emergency Provider Nurse Practitioner
DX: L98.9 Disorder of the skin and subcutaneous tissue, unspecified (principal); E11.9 Type 2 diabetes mellitus without complications; Z90.711 Acquired absence of uterus with remaining cervical stump; F17.210 Nicotine dependence, cigarettes, uncomplicated
CPT/HCPCS: 99213; G0463

== ENCOUNTER 2022-08-02 07:12 | Outpatient (CLI) | payer BC, SELFPAY ==
--- NOTE | ~2022-08-02 | US_ITS ---
Limited Abdominal Sonogram: Real-time sonographic imaging of the right upper quadrant was performed. Clinical History: Abnormal liver transaminase levels Findings: The liver appears mildly echogenic, with no evidence of mass lesion or bile duct dilatatio n. Main portal vein demonstrates normal direction of flow. The gallbladder is absent, compatible prio r cholecystectomy. The common bile duct measures 5 mm. The visualized pancreas, aorta, and IVC are u nremarkable. Small simple right renal cyst noted. Impression: Diffuse fatty infiltration of liver. Status post cholecystectomy. Reviewed, dictated and finalized at location . Impression: Diffuse fatty infiltration of liver. Status post cholecystectomy.
== END 2022-08-02 07:13 | disposition home or self-care (01) ==
LOC: CHSIMG 07:14
PROVIDERS: PCP Nurse Practitioner Family; Visit Provider Internal Medicine Endocrinology, Diabetes & Metabolism
DX: R74.01 Elevation of levels of liver transaminase levels (principal); K76.0 Fatty (change of) liver, not elsewhere classified; Z90.49 Acquired absence of other specified parts of digestive tract
CPT/HCPCS: 76705

== ENCOUNTER 2022-09-27 09:24 | Outpatient (CLI) | payer BC, SELFPAY ==
--- NOTE | ~2022-09-27 | XR_ITS ---
EXAMINATION:XR cervical spine 4-5V DATE: 09/27/2022 10:27 INDICATION: Neck pain TECHNIQUE: AP, lateral, bilateral oblique, lateral swimmers and odontoid views of the cervical spine are provided. COMPARISON: None FINDINGS: There are 2 mm of retrolisthesis of C5 on C6. Vertebral body alignment is otherwise normal. The odontoid process is intact. No fracture is identified. The vertebral body heights are maintained . There is mild loss of intervertebral disc space height at C5-6. There is moderate bilateral facet j oint osteoarthritis and mild bilateral neuroforaminal narrowing at C5-6. Prevertebral soft tissues ar e normal. IMPRESSION: 1. Mild cervical spondylosis at C5-6. Reviewed, dictated and finalized at location B.
--- NOTE | ~2022-09-27 | XR_ITS ---
EXAMINATION: XR thoracic spine 2V DATE: 09/27/2022 10:27 INDICATION: Thoracic back pain TECHNIQUE: AP and lateral views of the thoracic spine are obtained. COMPARISON: None. FINDINGS: Bone alignment is normal. There is no fracture. There is mild loss of intervertebral disc s pace height at multiple levels of the thoracic spine. The vertebral body heights are maintained. Smal l degenerative osteophytes project from the anterior endplates of multiple vertebral bodies. Surgical clips in the right upper quadrant are likely from prior cholecystectomy. IMPRESSION: 1. Mild thoracic spondylosis. Reviewed, dictated and finalized at location B.
--- NOTE | 2022-09-27 09:37 | ECG_ITS ---
Measurements Intervals [place] Rate: 70 P: 31 [place]: 141 QRS: 46 QRSD: 96 T: 46 QT: 406 QTc: 439 Interpretive Statements SINUS RHYTHM VERY SMALL NONDIAGNOSTIC INFERIOR Q-WAVES OTHERWISE WITHIN NORMAL LIMITS COMPARED WITH 10/19/2019 NO DIFFERENCE Electronically Signed On 09-27-2022 16:14:19 CDT by Randell Qureshi M.D.
[2022-09-27 10:10] LABS: Alanine Aminotransferase 49 U/L (14-59); Albumin Level 4.6 g/dL (3.4-5.0); Alkaline Phosphatase 96 U/L (46-116); Anion Gap 7 mmol/L (8-16); Aspartate Amino Transferase 24 U/L (15-37); Bilirubin,Total 0.5 mg/dL (0.00-1.00); Blood Urea Nitrogen 10 mg/dL (7-18); Calcium 9.6 mg/dL (8.5-10.1); Carbon Dioxide 32 mmol/L (21-32); Chloride 100 mmol/L (98-108); Estimated Glomerular Filt Rate > 60; Glucose 100 mg/dL (70-99); Osmolality Calculated 287 mOsm/kg (285-295); Sodium 139 mmol/L (136-145); Thyroid Stimulating Hormone 0.91 uIU/mL (0.36-3.74); Total Protein 7.8 g/dL (6.4-8.2)
[2022-09-27 10:32] LABS: Troponin I < 4.0 ng/L (0.00-60.4)
== END 2022-09-27 09:25 | disposition home or self-care (01) ==
LOC: CHSLAB 09:26
PROVIDERS: PCP Nurse Practitioner Family; Visit Provider Nurse Practitioner Family
DX: F32.9 Major depressive disorder, single episode, unspecified (principal); R10.12 Left upper quadrant pain; F41.9 Anxiety disorder, unspecified; M62.830 Muscle spasm of back; M79.669 Pain in unspecified lower leg; M43.06 Spondylolysis, lumbar region; M43.04 Spondylolysis, thoracic region; M43.02 Spondylolysis, cervical region
CPT/HCPCS: 36415; 72050; 72070; 80053; 84443; 84484; 93005

== ENCOUNTER 2022-12-19 11:22 | Outpatient (CLI) | payer BC, SELFPAY ==
--- NOTE | ~2022-12-19 | XR_ITS ---
Supine and upright views of the abdomen Clinical history: Abdominal pain Findings: Bowel gas pattern is nonspecific. No evidence for obstruction or free air. No abnormal mass lesion or calcification is seen. Probable calcified pelvic phleboliths. Cholecystectomy clips presen t. Osseous structures are intact. Impression: No significant abnormality is seen. Reviewed, dictated and finalized at [facility]. AL RECRUITER Impression: No significant abnormality is seen.
[2022-12-19 13:24] LABS: Appearance Urine Clear (Clear); Bilirubin Urine Negative (Negative); Blood Urine Trace-Intact (Negative); Color Urine Light Yellow (Yellow); Glucose Urine UA Negative (Negative); Ketones Urine Negative (Negative); Leukocyte Esterase Ur Negative LEU/UL (Negative); Nitrate Urine Negative (Negative); Protein Urine Negative (Negative); Urobilinogen Urine 0.2 mg/dL (0.2-1.0)
[2022-12-19 13:32] LABS: Add Urine Microscopic? YES; Bacteria Urine Trace /hpf; RBC Urine 0-2 /hpf (0-2); Squamous Epithelial Cell Urine Moderate /hpf (Few); WBC Urine None seen /hpf (0-3)
== END 2022-12-19 11:23 | disposition home or self-care (01) ==
LOC: CHSIMG 11:24
PROVIDERS: PCP Nurse Practitioner Family; Visit Provider Nurse Practitioner Family
DX: R10.9 Unspecified abdominal pain (principal); R31.9 Hematuria, unspecified
CPT/HCPCS: 74018; 81001

== ENCOUNTER 2022-12-20 08:08 | Outpatient (CLI) | payer BC, SELFPAY ==
--- NOTE | ~2022-12-20 | US_ITS ---
EXAMINATION: US renal BI DATE: 12/20/2022 08:38 INDICATION: Hematuria TECHNIQUE: Multiple grayscale and Doppler ultrasound images of the kidneys were obtained. COMPARISON: None. FINDINGS: The right kidney measures 11.6 x 4.8 x 4.8 cm and contains a 2 cm cyst. The left kidney jairon sures 11.4 x 4.1 x 5.1 cm. The kidneys demonstrate normal parenchymal echogenicity. There is no hydro nephrosis. The bladder is normal. IMPRESSION: 1. Normal kidneys without hydronephrosis. Reviewed, dictated and finalized at location B. CAL ORDERLY
== END 2022-12-20 08:09 | disposition home or self-care (01) ==
LOC: CHSIMG 08:10
PROVIDERS: PCP Nurse Practitioner Family; Visit Provider Nurse Practitioner Family
DX: R10.9 Unspecified abdominal pain (principal); R31.9 Hematuria, unspecified
CPT/HCPCS: 76775

== ENCOUNTER 2023-01-10 12:01 | Outpatient (CLI) | payer BC, SELFPAY ==
[2023-01-10 12:17] LABS: Appearance Urine Clear (Clear); Bilirubin Urine Negative (Negative); Blood Urine 1+ (Negative); Color Urine Light Yellow (Yellow); Glucose Urine UA Negative (Negative); Ketones Urine Negative (Negative); Leukocyte Esterase Ur Negative LEU/UL (Negative); Nitrate Urine Negative (Negative); Protein Urine Negative (Negative); Specific Grav Ur <= 1.005 (1.010-1.020); Urobilinogen Urine 0.2 mg/dL (0.2-1.0)
[2023-01-10 12:24] LABS: Add Urine Microscopic? YES; Bacteria Urine Trace /hpf; RBC Urine 0-2 /hpf (0-2); Squamous Epithelial Cell Urine Rare /hpf (Few); WBC Urine None seen /hpf (0-3)
== END 2023-01-10 12:02 | disposition home or self-care (01) ==
PROVIDERS: PCP Nurse Practitioner Family; Visit Provider Nurse Practitioner Family
DX: R39.9 Unspecified symptoms and signs involving the genitourinary system (principal)
CPT/HCPCS: 81001

== ENCOUNTER 2023-09-08 11:19 | Outpatient (CLI) | payer BC, SELFPAY ==
[2023-09-08 11:36] LABS: Basophils Absolute Auto 0.07 K/mm3 (0.00-0.10); Basophils Percent Auto 0.7 % (0.0-1.0); Eosinophils Absolute Auto 0.45 K/mm3 (0.02-0.50); Eosinophils Percent Auto 4.8 % (1.0-6.0); Hematocrit 39.4 % (35.0-49.0); Hemoglobin 13.4 g/dL (12.0-15.0); Immature Granulocyte Absolute 0.04 K/mm3 (0.00-0.00); Immature Granulocyte Percent A 0.4 % (0.0-0.0); Lymphocytes Absolute Auto 1.91 K/mm3 (1.10-4.50); Lymphocytes Percent Auto 20.2 % (18.0-42.0); Mean Corpuscular Hemoglobin 28.7 pg (27.0-31.0); Mean Corpuscular Volume 84.4 fL (78.0-102.0); Mean Platelet Volume 9.7 fl (9.2-11.8); Monocytes Percent Auto 6.4 % (2.0-11.0); Neutrophils Absolute Auto 6.37 K/mm3 (1.70-7.20); Neutrophils Percent Auto 67.5 % (50.0-70.0); Platelet Count Result 211 K/mm3 (150-420); Red Blood Count 4.67 M/mm3 (4.20-5.40); Red Cell Distribution Width 14.5 % (11.6-14.4); White Blood Count 9.4 K/mm3 (4.8-10.8)
[2023-09-08 11:44] LABS: Hemoglobin A1C 7.4 % (<5.7)
[2023-09-08 12:18] LABS: Alanine Aminotransferase 27 U/L (14-59); Albumin Level 4.1 g/dL (3.4-5.0); Alkaline Phosphatase 81 U/L (46-116); Anion Gap 11 mmol/L (4-12); Aspartate Amino Transferase 21 U/L (15-37); Bilirubin,Total 0.5 mg/dL (0.00-1.00); Blood Urea Nitrogen 8 mg/dL (7-18); Calcium 9.2 mg/dL (8.5-10.1); Carbon Dioxide 26 mmol/L (21-32); Chloride 99 mmol/L (98-108); Cholesterol 126 mg/dL (0-200); Estimated Glomerular Filt Rate > 60; Free T4 Free Thyroxine 0.83 ng/dL (0.76-1.46); Glucose 160 mg/dL (70-99); HDL Direct 41 mg/dL (40-60); LDL Cholesterol Calculated 47 mg/dL (<130); Osmolality Calculated 283 mOsm/kg (285-295); Potassium 4.1 mmol/L (3.5-5.1); Sodium 136 mmol/L (136-145); Thyroid Stimulating Hormone 0.75 uIU/mL (0.36-3.74); Total Protein 7.5 g/dL (6.4-8.2); Triglycerides 192 mg/dL (0-150)
[2023-09-08 16:21] LABS: Creatinine Urine 60.48 mg/dL (40-278); MALB Creatinine Ratio 21.4 mg/g (0-30); Microalbumin Urine Random < 13.0 mg/L
[2023-09-10 01:23] LABS: Vitamin D 25 Hydroxy 73 ng/mL (30-100)
== END 2023-09-08 11:20 | disposition home or self-care (01) ==
LOC: CHSLAB 11:23
PROVIDERS: PCP Nurse Practitioner Family; Visit Provider Nurse Practitioner Family
DX: I10 Essential (primary) hypertension (principal); E03.9 Hypothyroidism, unspecified; Z79.899 Other long term (current) drug therapy; Z13.6 Encounter for screening for cardiovascular disorders; E11.9 Type 2 diabetes mellitus without complications
CPT/HCPCS: 36415; 80053; 80061; 82043; 82306; 83036; 84439; 84443; 85025

== ENCOUNTER 2024-08-17 09:19 | Outpatient (CLI) | payer BC, SELFPAY ==
--- OUTSIDE RECORDS SUMMARY | 2024-08-17 09:24 | XMS_ITS | Continuity of Care Document ---
Author Organization [facility] Address [address] [address] Insurance Providers Payer Plan Claims Address Claims Phone Policy Number Group Number Relation Employer Guarantor Name Guarantor Guarantor Address Guarantor Phone [facility] [address] [address], [place] [address] tel:[phone] [id number] Self Marisol Loni Escalante 1980 [address] [place] [address], [place] [id number] [employer] D [address], [place] [address] tel:[phone] Pankaj Marisol Escalante 1980 [address] [place] [address], [place] [id number] [employer] Other [employer] Other [address], [place] [address] tel:[phone] [id number] Self Marisol Loni Ava 1980 [address] [place] [address], [place] [id number] Problems Condition ICD9 code ICD10 code SNOMED code Start Date End Date S tatus Encounter for screening for other metabolic disorders Z13.228 Type 2 diabetes mellitus with unspecified complications E11.8 Major depressive disorder, single episode, unspecified F32.9 Admi tting Anxiety disorder, unspecified F41.9 Admitting Muscle spasm of back M62.830 Adm itting Left upper quadrant pain R10.12 Admitting Results Test Result Date/Time Value / Unit Interp. Refere nce Range LIPID PANEL (REFL)[[id number]] Collected: 12/20/2021 03:19 PM Specimen Received: 12/20/2021 03:20 PM Source: [facility]:YESFASTING: YES CHOLESTEROL, TOTAL [[id number]] 12/21/2021 09:25 PM 104 mg/dL N 200 mg/dL HDL CHOLESTEROL [[id number]] 12/21/2021 09:25 PM 36 mg/dL L > OR = 50 mg/dL TRIGLYCERIDES [[id number]] 12/21/2021 09:2 5 PM 196 mg/dL H 150 mg/dL LDL-CHOLESTEROL [[id number]] 12/21/2021 09:25 PM 41 mg/dL (calc) N Reference range: or = 2 CHD risk factors. LDL-C is now calculated using the Candido-Fuentes calculation, which is a validated novel method providing better accuracy than the Friedewald equation in the estimation of LDL-C. Candido SS et al. ONEL. 2013;310(19): 5774-9329 (http://education.[employer] ([place])/faq/XNO405) CHOL/HDLC RATIO [[id number]] 12/21/2021 09:25 PM 2.9 (calc) N 5.0 (calc) NON HDL CHOLESTEROL [[id number]] 12/21/2021 09:25 PM 68 mg/dL (calc) N 130 mg/dL (calc) For patients with diabetes p manny 1 major ASCVD risk factor, treating to a non-HDL-C goal of 100 mg/dL (LDL-C of <70 mg/dL) is considered a therapeutic option. ALBUMIN, RANDOM URINE W/CREA TININE[[id number]] Collected: 12/20/2021 03:19 PM Specimen Received: 12/20/2021 03:20 PM Source: [facility]:YESFASTING: YES CREATININE, RANDOM URINE [[id number]] 12/21/2021 09:25 PM 64 mg/dL N 20-275 mg/dL ALBUMIN, URINE [[id number]] 12/21/2021 09: 25 PM 0.6 mg/dL N See Note: mg/dL Reference Range:Reference Ra ngeNot established ALBUMIN/CREATININE RATIO, RANDOM URINE [[id number]] 12/21/2021 09:25 PM 9 mcg/mg creat N 30 mcg/mg creat The ADA defines abnormalitie s in albuminexcretion as follows: Albuminuria Category Result (mcg/mg creatinine) Normal to Mildly increased OR = 300 The ADA recommends that at least two of threespecimens collected within a 3-6 month period beabnormal before considering a patient to bewithin a diagnostic category. COMPREHENSIVE METABOLIC PANE L[[id number]] Collected: 12/20/2021 03:19 PM Specimen Received: 12/20/2021 03:20 PM Source: [facility]:YESFASTING: YES GLUCOSE [[id number]] 12/21/2021 09:25 PM 107 mg/dL H 65-99 mg/dL Fasting reference interval F or someone without known diabetes, a glucose valuebetween 100 and 125 mg/dL is consistent withprediabetes and should be confirmed with afollow-up test. UREA NITROGEN (BUN) [] 12/21/2021 09:25 PM 12 mg/dL N 7-25 mg/dL CREATININE [[id number]] 12/21/2021 09:25 PM 0.59 mg/dL N 0.50-0.99 mg/dL EGFR [[id number]] 12/21/2021 09:25 PM 115 mL/min/1.73m2 N > OR = 60 mL/min/1.73m2 The eGFR is based on the CKD -EPI 2020 equation. To calculate the new eGFR from a previous Creatinine or Cystatin Cresult, go to https://www.kidney.org/professionals/kdoqi/gfr%5Fcalculator BUN/CREATININE RATIO [[id number]] 12/21/2021 09:25 PM NOT APPLICABLE (calc) 6-22 (calc) SODIUM [[id number]] 12/21/2021 09:25 PM 138 mmol/L N 135-146 mmol/L POTASSIUM [[id number]] 12/21/2021 09:25 PM 4.0 mmol/L N 3.5-5.3 mmol/L CHLORIDE [[id number]] 12/21/2021 09:25 PM 103 mmol/L N 98-110 mmol/L CARBON DIOXIDE [[id number]] 12/21/2021 09: 25 PM 25 mmol/L N 20-32 mmol/L CALCIUM [[id number]] 12/21/2021 09:25 PM 9.4 mg/dL N 8.6-10.2 mg/dL PROTEIN, TOTAL [[id number]] 12/21/2021 09: 25 PM 7.3 g/dL N 6.1-8.1 g/dL ALBUMIN [[id number]] 12/21/2021 09:25 PM 4.6 g/dL N 3.6-5.1 g/dL GLOBULIN [[id number]] 12/21/2021 09:25 PM 2.7 g/dL (calc) N 1.9-3.7 g/dL (calc) ALBUMIN/GLOBULIN RATIO [[id number]] 12/21/2021 09:25 PM 1.7 (calc) N 1.0-2.5 (calc) BILIRUBIN, TOTAL [[id number]] 12/21/2021 09:25 PM 0.6 mg/dL N 0.2-1.2 mg/dL ALKALINE PHOSPHATASE [[id number]] 12/21/2021 09:25 PM 78 U/L N 31-125 U/L AST [[id number]] 12/21/2021 09:25 PM 19 U/L N 10-30 U/L ALT [[id number]] 12/21/2021 09:25 PM 43 U/L H 6-29 U/L HEMOGLOBIN A1c[[id number]] Collected: 12/20/2021 03:19 PM Specimen Received: 12/20/2021 03:20 PM Source: [facility]:YESFASTING: YES HEMOGLOBIN A1c [[id number]] 12/21/2021 09: 25 PM 6.2 % of total Hgb H 5.7 % of total Hgb For someone without known di abetes, a hemoglobin A1c value between 5.7% and 6.4% is consistent withprediabetes and should be confirmed with a follow-up test. For someone with known diabetes, a value 7%indicates that their diabetes is well controlled. [id number] should be individualized based on duration ofdiabetes, age, comorbid conditions, and otherconsiderations. This assay result is consistent with an increased riskof diabetes. Currently, no consensus exists regarding use ofhemoglobin A1c for diagnosis of diabetes for children. Clinical PDF Report [id number][ClinicalPDFReport1] Collected: 12/20/2021 03:19 PM Specimen Received: 12/20/2021 03:20 PM Source: [facility]:YESFASTING: YES Clinical PDF Report [id number] [ClinicalPDFReport1] STL Allergies, adverse reactions, alerts No known allergies and adverse reactions Medications No administered medications reported Vital Signs No vital signs reported Social History No smoking Hx information available
--- OUTSIDE RECORDS SUMMARY | 2024-08-17 09:24 | XMS_ITS | Clinical Summary ---
Author Organization [facility] Address [address] [place] [address] Phone Care Team Providers Care Beam Builder Helper Name Role Phone Russ Du MD Primary Care Provider [phone] Allergies Active Allergy Reactions Criticality Noted Date Comments Codeine Rash Medium 12/02/2016 Povidone-Iodine Shortness of Breath/Wheezing High Medications metFORMIN (GLUCOPHAGE) 1,000 mg tablet Take 1,000 mg by mouth daily. Active semaglutide (Ozempic) 0.25 mg or 0.5 mg(2 mg/1.5 mL) Pen Injector Inject by subcutaneous injection. Active cyanocobalamin 1,000 mcg Tablet Take 1,000 mcg by mouth daily. Active iron bis-gly/FA/C/B1 2/Ca/succ (IRON-150 ORAL) Take by mouth. Active calcium-choleca lciferol (OS-NANCY 500+D) 500 mg(1,250mg) -200 unit tablet Take 1 Tablet by mouth daily. Active Active Problems Patient Care Coordination No te Formatting of this note migh t be different from the original. Primary Care: Russ Du MD Referring Provider: Russ Du MD [facility] [place] [address] Other: Problem Noted Date Diagnosed Date Mastodynia 02/22/2019 Discharge from both nipples 02/22/2019 Tobacco use 02/22/2019 Family History Medical History Relation Name Comments Ovarian Cancer Mother Breast Cancer Other matgreataunt Relation Name Status Comments Mother Alive Other matgreataunt Social History Tobacco Use Types Packs/Day Years Used Date Smoking Tobacco: Every Day Cigarettes 2 24 Smokeless Tobacco: Never Alcohol Use Standard Drinks/Week Comments Yes 0 (1 standard drink = 0.6 oz pur e alcohol) rarely Comments No Sex and Gender Information Value Date Recorded Sex Assigned at Not on file Legal Sex Female 2:21 PM FEATHER SHAPER Gender Identity Not on file Sexual Orientation Not on file Last Filed Vital Signs Vital Sign Reading Time Taken Comments Blood Pressure 111/75 02/18/2019 9:31 AM FEATHER SHAPER Pulse 96 02/18/2019 9:31 AM FEATHER SHAPER Temperature - - Respiratory Rate - - Oxygen Saturation - - Inhaled Oxygen Concentration - - Weight 81.5 kg (179 lb 9.6 oz) 02/18/2019 9:31 A M FEATHER SHAPER Height 157.5 cm (5' 2) 02/18/2019 9:31 AM FEATHER SHAPER Body Mass Index 32.85 02/18/2019 9:31 AM FEATHER SHAPER Plan of Treatment Health Maintenance Due Date Last Done Comments DIABETES ANNUAL FOOT EXAM 1997 DIABETES ANNUAL RETINAL EXAM 1997 DIABETES MICROALBUMIN ANNUAL SCREEN 1997 LDL CHOLESTEROL ANNUAL 1997 DTAP/TDAP/TD VACCINES (1 - Tdap) 1998 HEPATITIS B VACCINES (1 of 3 - 19+ 3-dose series) 1998 HPV/Cotest (21-29) 2000 CERVICAL CANCER SCREENING 2009 HPV/Cotest (30-65) 2009 PAP SMEAR 2009 DIABETES HBA1C Q 6 MONTHS 06/20/2022 12/21/2021 COLORECTAL SCREENING 2024 Colorectal Cancer Screening 2024 FIT-DNA Q 3 years 2024 FIT/FOBT Q 1 year 2024 Flex Sig/CT Colonography Q 5 years 2024 BREAST CANCER SCREENING 05/13/2024 05/14/19 24, 02/15/2019 INFLUENZA VACCINE (#1) 2024 HPV VACCINES Aged Out No longer eligi ble based on patient's age to complete this topic Procedures Procedure Name Priority Date/Time Associated Diagnosis Comments MAMMO 3D MIKKI SCREEN BILAT W OR WO CAD Routine 05/14/2023 3:49 PM CDT Visit for screening mammogram from Last 3 Months or Most Recently Relevant to Health Maintenance Results * MAMMO 3D MIKKI SCREEN BILAT W OR WO CAD (05/14/2023 3:49 PM CDT) Anatomical Region Laterality Modality Breast Bilateral Mammography 05/14/2023 3:50 PM CDT Impressions 05/14/2023 4:12 PM CDT IMPRESSION: BI-RADS Category 2, benign mammogram. Recommend yearly bilateral screening mammogram. Narrative 05/14/2023 4:12 PM CDT EXAM: MAMMO 3D MIKKI SCREEN BILAT W OR WO CAD DATE: 05/14/2023 CLINICAL HISTORY: Screening in an asymptomatic patient with a history of breast reduction mammoplasty and a family history of breast cancer TECHNIQUE: Bilateral full field digital mammography and digital tomosynthesis were performed in the CC and MLO projections. Comparison was made to a prior mammogram performed February 15, 2019 and prior bilateral breast ultrasounds performed February 05, 2019. CAD was utilized. FINDINGS: The breast parenchyma is fatty. The parenchymal pattern is unchanged compared to the prior exam. Multiple bilateral calcified oil cysts are again visualized. A few scattered bilateral focal asymmetries are unchanged. There is no new suspicious asymmetry or mass, area of architectural distortion or suspicious microcalcification. Russ Du MD MAMMO ORDERABLES Final Result from Last 3 Months or Most Recently Relevant to Health Maintenance Insurance [facility] BLUE ACCESS/TRUE BLUE PPO [facility] BLUE ACCESS/TRUE BLUE PPO Care Teams Beam Builder Helper Relationship Specialty Start Date End Date Russ Du MD [facility] [place] [address] PCP - General Family Practice 02/18/19
--- OUTSIDE RECORDS SUMMARY | 2024-08-17 09:24 | XMS_ITS | Clinical Summary ---
Author Organization [facility] Address [facility] [place] [address] Care Team Providers Care Plastic Molding Operator Name Role Phone Unavailable Primary Care Provider Unavailabl e Social History Tobacco Use Types Packs/Day Years Used Date Smoking Tobacco: Never Assessed Comments Unknown Sex and Gender Information Value Date Recorded Sex Assigned at Not on file Legal Sex Female 7:23 PM CDT Gender Identity Not on file Sexual Orientation Not on file Plan of Treatment Health Maintenance Due Date Last Done Comments Cervical Cancer Screening Pa p Smear (Age 30 to 64) Every 3 Years 1979 Colorectal Cancer Screening Colonoscopy (10 Years) 1979 Annual Physical 1982 Hepatitis C 1997 DTaP, Tdap and Td Vaccines ( 1 - Tdap) 1998 Hepatitis B Vaccines (1 of 3 - 19+ 3-dose series) 1998 Cervical Cancer Screening Pa p with HPV Testing (Age 30 to 64) Every 5 Years 2009 Cervical Cancer Screening with HPV 2009 Mammogram Screening 2019 COVID-19 Vaccine ( - 2023-2 5 season) 2023 HPV Vaccines Aged Out No longer eligi ble based on patient's age to complete this topic Meningococcal B Vaccine Aged Out No l onger eligible based on patient's age to complete this topic Meningococcal Vaccine Aged Out No eboni lexii eligible based on patient's age to complete this topic Pneumococcal Vaccine: Pediat rics (0 to 5 Years) and At-Risk Patients (6 to 49 Years) Aged Out No longer eligible b ased on patient's age to complete this topic RSV Immunizations Under 20 Months Aged Out No longer eligible based on patient's age to complete this topic
[2024-08-17 09:55] LABS: Hemoglobin A1C 6.3 % (<5.7)
[2024-08-17 10:01] LABS: Alanine Aminotransferase 19 U/L (6-35); Albumin Level 4.5 g/dL (3.5-5.1); Alkaline Phosphatase 90 U/L (38-126); Anion Gap 6 mmol/L (4-12); Aspartate Amino Transferase 22 U/L (14-36); Bilirubin,Total 0.6 mg/dL (0.2-1.3); Blood Urea Nitrogen 12 mg/dL (7-17); Calcium 9.6 mg/dL (8.4-10.2); Carbon Dioxide 27 mmol/L (22-30); Chloride 104 mmol/L (98-107); Estimated Glomerular Filt Rate > 60; Glucose 120 mg/dL (65-110); Osmolality Calculated 284 mOsm/kg (285-295); Potassium 4.4 mmol/L (3.4-5.0); Sodium 137 mmol/L (137-145); Total Protein 7.5 g/dL (6.3-8.2)
[2024-08-17 10:18] LABS: Free T4 Free Thyroxine 1.02 ng/dL (0.78-2.19)
[2024-08-17 10:32] LABS: Thyroid Stimulating Hormone 0.391 uIU/mL (0.465-4.680)
== END 2024-08-17 09:20 | disposition home or self-care (01) ==
LOC: CHSLAB 09:20
PROVIDERS: PCP Nurse Practitioner Family; Visit Provider Nurse Practitioner Family
DX: E03.9 Hypothyroidism, unspecified (principal); I10 Essential (primary) hypertension; E11.9 Type 2 diabetes mellitus without complications; Z79.899 Other long term (current) drug therapy; R79.89 Other specified abnormal findings of blood chemistry
CPT/HCPCS: 36415; 80053; 82306; 83036; 84439; 84443; 84480